=== PATIENT | female | born 1985 | race Caucasian/White ===

== ENCOUNTER 2019-01-04 10:36 | Emergency (ER) | payer MEDICAID, OTHER ==
[~2019-01-04] VITALS: Ht 170.2 cm; Wt 95.0 kg
[~2019-01-04 10:36] MED LIST: ALBU6.7H8 INH; MOME13HF2 INH
[2019-01-04] MEDS ORDERED: DIPH25CA61 PO (10:57)
[2019-01-04] MEDS ORDERED: PROM25SU34 RC (10:57)
[2019-01-04] MEDS ORDERED: METO10TA82 PO (10:57)
--- NOTE | 2019-01-04 10:58 | NUR ---
BIB EMS FROM HOME FOR NAUSEA/VOMITTING AND ABDOMINAL PAIN. PT TOOK PHENERGAN, REGLAN AND BENADRYL AT HOME AND WAS GIVEN ZOFRAN AND FENTANYL BY EMS. NO PAIN CURRENTLY, PT REMAINS NAUSEATED. PT CONTINUES TO FORCE FINGERS DOWN THROAT, COACHED BY RN TO DISCONTINUE ACTIONS. PT REPORTS THESE SYMPTOMS SINCE LAST YEAR WITH EVERY AM NAUSEA. SIDE RAILS UP, CALL LIGHT IN REACH, AWAITING ER MD TO DAVID. PT HAS NOT VOMITTED SINCE COMING TO ED, GIVEN EMESIS BAG. PT TEARFUL, RESTLESS.
--- NOTE | 2019-01-04 11:18 | NUR ---
REPORT TO SHAYAN SOLANO RN.
--- NOTE | 2019-01-04 11:22 | NUR ---
RECEIVED REPORT FROM QUIRINO GR, ASSUMING CARE AT THIS TIME.
--- NOTE | 2019-01-04 11:31 | NUR ---
PT MOVED TO PSYCH ROOM WHERE PT CAN BE CONTINUOUSLY MONITORED FOR STATEMENTS MADE TO PRIOR RN DURING SI SCREENING. PT APPEARING UNCOMFORTABLE, GAGGING/WRETCHING, NO VOMITING NOTED. FAMILY AT BEDSIDE. PT INSTRUCTED TO CHANGE INTO A GOWN, GIVEN BAG FOR ALL BELONGINGS. SITTER IN HAYES FOR CONTINUOUS MONITORING. AWAITING FURTHER ORDERS FROM MD AT THIS TIME
[2019-01-04] MEDS ORDERED: ONDANSETRON 2MG/ML, 2ML ONE (11:40)
[2019-01-04] MEDS ORDERED: LORazepam 2 MG/ML, 1ML ONE (11:40)
--- NOTE | 2019-01-04 11:47 | NUR ---
PT MEDICATED FOR NAUSEA AND ANXIETY. HOLDING GI COCKTAIL UNTIL PT NO LONGER VOMITTING. FAMILY AT BEDSIDE. SITTER IN HAYES FOR CONTINUOUS MONITORING. LAB AT BEDSIDE FOR COLLECTION
[2019-01-04] MEDS ORDERED: MAALOX/HYOSCYAMINE/LIDOCAINE 45 ML BTL ONE (11:56)
[2019-01-04 12:00] LABS: BASOPHILS # (AUTO) 0.01 x10^3/uL (0-0.1); BASOPHILS % (AUTO) 0 % (0-1); EOSINOPHILS % (AUTO) 0 % (1-7); LYMPHOCYTES # (AUTO) 0.88 x10^3/uL (1-3.4); LYMPHOCYTES % (AUTO) 7 % (22-44); MD NO; MEAN CORPUSCULAR HEMOGLOBIN 30.1 pg (27.0-34.8); MEAN CORPUSCULAR HGB CONC 33.8 g/dL (32.4-35.8); MEAN CORPUSCULAR VOLUME 89.2 fL (80-100); MEAN PLATELET VOLUME 7.5 fL (7.4-10.4); MONOCYTES % (AUTO) 3 % (2-9); NEUTROPHILS # (AUTO) 11.57 x10^3/uL (1.8-6.8); NEUTROPHILS % (AUTO) 90 % (42-75); PLATELET COUNT 351 x10^3/uL (130-400); RED BLOOD COUNT 4.94 x10^6/uL (3.82-5.3); RED CELL DISTRIBUTION WIDTH 12.7 % (9.6-15.2)
[2019-01-04] MEDS ORDERED: ONDANSETRON 2MG/ML, 2ML IVPush ONE (12:00)
[2019-01-04] MEDS ORDERED: MAALOX/HYOSCYAMINE/LIDOCAINE 45 ML BTL PO ONE (12:00)
[2019-01-04] MEDS ORDERED: LORazepam 2 MG/ML, 1ML IVPush ONE (12:00)
--- NOTE | 2019-01-04 12:08 | NUR ---
PT BEING TAKEN TO RAD
[2019-01-04 12:12] LABS: ALANINE AMINOTRANSFERASE 28 U/L (12-78); ANION GAP 10 mmol/L (5-15); CALCIUM 8.8 mg/dL (8.5-10.1); CHLORIDE 108 mmol/L (98-107); CREATININE 1.01 mg/dL (0.55-1.02)
[2019-01-04 12:14] LABS: ALKALINE PHOSPHATASE 66 U/L (45-117); BILIRUBIN,TOTAL 0.8 mg/dL (0.2-1.0); TOTAL PROTEIN 7.7 g/dL (6.4-8.2)
[2019-01-04 12:44] VITALS: BP 134/84
--- NOTE | 2019-01-04 12:44 | NUR ---
PT CURRENTLY SLEEPING IN BED, RR EVEN AND UNLABORED, EASILY AROUSABLE FOR VERBAL STIMULI. VSS. AWAITING TEST RESULTS AT THIS TIME AND RECHECK. FAMILY AT BEDSIDE. SITTER IN HAYES FOR CONTINUOUS MONITORING.
--- NOTE | 2019-01-04 13:09 | NUR ---
ALL RESULTS BACK, CHART UP FOR RECHECK
--- NOTE | 2019-01-04 13:40 | NUR ---
Patient/Caregiver given discharge instructions and they have confirmed that they understand the instructions. Patient ambulatory with steady gait.
== END 2019-01-04 13:40 | disposition home or self-care (01) ==
LOC: ED 12:21
DX: G43.A1 Cyclical vomiting, in migraine, intractable (principal); R19.7 Diarrhea, unspecified
CPT/HCPCS: 36415; 74021; 80053; 83605; 83690; 85025; 96374; 96375; 99284; J2060; J2405

== ENCOUNTER 2020-02-01 06:56 | Emergency (ER) | payer OTHER ==
[~2020-02-01 06:56] MED LIST changes: +DIPH25CA61 PO; +METO10TA82 PO; +PROM25SU34 RC
--- NOTE | 2020-02-01 07:07 | NUR ---
NA X 1
--- NOTE | 2020-02-01 07:13 | NUR ---
RUSSIAN RUBBER: PATIENT OUTSIDE TALKING ON PHONE, WILL TRIAGE WHEN BACK IN LOBBY
--- NOTE | 2020-02-01 07:19 | NUR ---
HEALTH ADMINISTRATION TEACHER: [id number]
--- NOTE | 2020-02-01 07:28 | NUR ---
FITNESS SUPERVISOR: CLAUDETTE
== END 2020-02-01 07:30 ==
LOC: ED 07:20
DX: R10.9 Unspecified abdominal pain (principal); M54.9 Dorsalgia, unspecified; Z53.21 Procedure and treatment not carried out due to patient leaving prior to being seen by health care provider